=== PATIENT | female | born 1975 | race Caucasian/White ===

== ENCOUNTER → 2018-12-10 08:17 | Outpatient (CLI) | payer BC, SELFPAY ==
--- NOTE | 2018-12-10 08:19 | MM_ITS ---
MM Dig screening mamm BI w/CAD CAD Screening COMPARISON: None, this is baseline INDICATION: There is no personal or family history of breast cancer TECHNIQUE: Standard CC and MLO images were obtained. R2 CAD reviewed. FINDINGS: Scattered fibroglandular densities are seen in both breast. There is a possible asymmetric density left breast best seen on the cc view but likely present on the MLO view as well. This likely is asymmetric glandular tissue but recommend patient return for spot compression views in MLO and CC projection. Ultrasound may be necessary as well. There are no suspicious microcalcifications. IMPRESSION: Fibrofatty parenchyma with possible asymmetric density versus summation shadow left breast BI-RADS Category: 0 Need Additional Imaging Evaluation RECOMMENDED FOLLOW-UP: IMM - IMMEDIATE FOLLOW-UP RECOMMENDED (A letter has been sent to the patient regarding results of the study.)
== END ==
PROVIDERS: PCP Internal Medicine; Visit Provider Nurse Practitioner Obstetrics & Gynecology
DX: Z12.31 Encounter for screening mammogram for malignant neoplasm of breast (principal)
CPT/HCPCS: 77067

== ENCOUNTER → 2019-04-01 13:50 | Outpatient (CLI) | payer BC, SELFPAY ==
--- NOTE | 2019-04-01 13:52 | MM_ITS ---
PROCEDURE: MM DIG MAMM DX UNILAT LT CAD CLINICAL INDICATION: Dx Mammogram Left Breast-Abnormal Mammogram COMPARISON: DIG MAMM-SCREEN SANJEEV from 12/10/2018 US BREAST LT COMPLETE from 04/01/2019 TECHNIQUE: Spot-compression views as well as left breast ultrasound. FINDINGS: Spot-compression views are performed of the left breast. There is some persistent increased density in the superior left breast posteriorly on the spot compression views with some questionable architectural distortion. This however is not duplicated on the CC view nor the mL view there is a well-circumscribed 8 mm nodule at 3 o'clock position of the left breast which corresponds to a complicated cyst by ultrasound. Left breast ultrasound: There is a 9 by 8 mm hypoechoic nodule at 3 o'clock with good through transmission of sound. The nodules well-circumscribed. There are some internal septations within the nodule. This is consistent with a complicated cyst IMPRESSION: Asymmetry in the upper aspect of the left breast is not confirmed on the mL view or orthogonal view or ultrasound and may be due to fibroglandular tissue. Complicated cyst is present at 3 o'clock. Probably benign findings. Recommend six-month mammographic and sonographic follow-up as well as correlation with physical exam BI-RAD Category: 3 Probably Benign Finding Short Term Follow-up FOLLOW-UP: 6M 6Month Follow-up (A letter has been sent to the patient regarding results of the study.) Dictated by: Pedro Luis Bianchi MD 04/08/2019 11:11 Electronically signed by Pedro Luis Bianchi MD in [place] 04/08/2019 11:11
== END ==
PROVIDERS: PCP Internal Medicine; Visit Provider Nurse Practitioner Obstetrics & Gynecology
DX: R92.8 Other abnormal and inconclusive findings on diagnostic imaging of breast (principal)
CPT/HCPCS: 76641; 77065

== ENCOUNTER → 2019-05-31 14:56 | Outpatient (POV) | payer BC, SELFPAY | PROVIDERS: Visit Provider Dermatology | DX: Z00.00 Encounter for general adult medical examination without abnormal findings (principal) ==

== ENCOUNTER → 2021-01-14 10:58 | Outpatient (CLI) | payer BC, SELFPAY ==
--- NOTE | 2021-01-15 12:36 | PC.NURSE ---
Notified pt of her results and daughters results
== END ==
PROVIDERS: PCP Internal Medicine; Referring Provider Internal Medicine; Visit Provider Internal Medicine
DX: Z20.822 Contact with and (suspected) exposure to COVID-19 (principal); U07.1 COVID-19
CPT/HCPCS: U0003

== ENCOUNTER → 2021-10-16 16:04 | Outpatient (CLI) | payer BC, SELFPAY | PROVIDERS: PCP Internal Medicine; Visit Provider Internal Medicine | DX: Z20.822 Contact with and (suspected) exposure to COVID-19 (principal) | CPT/HCPCS: C9803; U0003; U0005 ==

== ENCOUNTER → 2022-02-07 11:20 | Outpatient (CLI) | payer BC, SELFPAY ==
[2022-02-07 13:07] LABS: Basophils # 0.1 K/mm3 (0-0.2); Basophils % 1.2 % (0.1-2.0); Eosinophils # 0.3 K/mm3 (0.0-0.4); Hematocrit 29.4 % (37.0-47.0); Hemoglobin 8.7 g/dL (12.2-16.2); Lymphocytes # 1.4 K/mm3 (0.7-4.5); Lymphocytes % 21.6 % (10-50); Mean Corpuscular HGB Conc 29.6 g/dL (31.8-35.4); Mean Corpuscular Hemoglobin 20.8 pg (27.0-31.2); Mean Corpuscular Volume 70.2 fl (81-99); Mean Platelet Volume 7.8 fl (7.4-10.4); Monocytes # 0.4 K/mm3 (0.1-1.0); Monocytes % 6.4 % (1.7-9.3); Neutrophils # 4.2 K/mm3 (1.8-7.8); Neutrophils % 66.7 % (37.0-80.0); Platelet Count 336 K/mm3 (142-424); Red Blood Count 4.19 M/mm3 (4.20-5.40); Red Cell Distribution Width 17.7 % (11.5-17.5); White Blood Count 6.3 K/mm3 (4.8-10.8)
[2022-02-07 13:33] LABS: Alanine Aminotransferase 15 U/L (12-78); Albumin Level 4.1 g/dl (3.5-5.0); Albumin/Globulin Ratio 1.7 (1.1-1.8); Alkaline Phosphatase 75 U/L (38-126); Anion Gap 13.4 mEq/L (5-15); Aspartate Amino Transferase 22 U/L (14-36); Blood Urea Nitrogen 10 mg/dl (7-17); Calcium 8.8 mg/dl (8.4-10.2); Carbon Dioxide 26 mmol/L (22.0-30.0); Chloride 104 mmol/L (98-107); Chol/HDL Ratio 4.1 (1-3.5); Cholesterol 173 mg/dl (140-200); Estimated Glomerular Filt Rate 90 ml/min (>60); GFR (African American) 109 ML/MIN (>60); Globulin 2.4 g/dL (1.3-3.2); Glucose 84 mg/dl (74-100); HDL Cholesterol 42 mg/dl (40-60); Potassium 4.4 mmoL/L (3.5-5.1); Sodium 139 mmol/L (136-145); Total Protein,Serum 6.5 g/dl (6.3-8.2); Triglycerides 98 mg/dl (30-150); VLDL Cholesterol 20 mg/dL (0-40)
[2022-02-07 13:39] LABS: Bilirubin,Total 0.1 mg/dl (0.2-1.3)
[2022-02-07 13:44] LABS: Direct LDL Cholesterol 112.89 mg/dL (100-129)
[2022-02-07 14:04] LABS: Thyroid Stimulating Hormone 2.52 uIU/mL (0.465-4.68)
[2022-02-07 14:46] LABS: Iron 24 ug/dL (37-170)
[2022-02-07 14:56] LABS: Total Iron Binding Capacity 446 ug/dL (265-497)
[2022-02-11 09:40] LABS: Ferritin 3.58 ng/ml (6.24-137)
== END ==
PROVIDERS: PCP Internal Medicine; Visit Provider Internal Medicine
DX: E78.5 Hyperlipidemia, unspecified (principal); R31.29 Other microscopic hematuria; N92.0 Excessive and frequent menstruation with regular cycle
CPT/HCPCS: 36415; 80053; 80061; 82728; 83540; 83550; 84443; 85025

== ENCOUNTER → 2022-03-14 20:57 | Outpatient (CLI) | payer BC, SELFPAY ==
[2022-03-14 21:24] LABS: Basophils # 0.1 K/mm3 (0-0.2); Basophils % 1.5 % (0.1-2.0); Eosinophils # 0.3 K/mm3 (0.0-0.4); Eosinophils % 4.2 % (0.1-12.0); Hemoglobin 11.7 g/dL (12.2-16.2); Lymphocytes # 1.6 K/mm3 (0.7-4.5); Lymphocytes % 26.8 % (10-50); Mean Corpuscular HGB Conc 30.7 g/dL (31.8-35.4); Mean Corpuscular Hemoglobin 26.8 pg (27.0-31.2); Mean Corpuscular Volume 87.2 fl (81-99); Mean Platelet Volume 9.1 fl (7.4-10.4); Monocytes # 0.3 K/mm3 (0.1-1.0); Monocytes % 4.6 % (1.7-9.3); Neutrophils # 3.8 K/mm3 (1.8-7.8); Neutrophils % 63.1 % (37.0-80.0); Platelet Count 319 K/mm3 (142-424); Red Blood Count 4.36 M/mm3 (4.20-5.40); Reticulocyte % (Auto) 2.1 % (0.9-3.2); White Blood Count 6.1 K/mm3 (4.8-10.8)
[2022-03-14 21:52] LABS: Red Cell Distribution Width 25.7 % (11.5-17.5)
== END ==
PROVIDERS: PCP Internal Medicine; Visit Provider Internal Medicine
DX: D50.0 Iron deficiency anemia secondary to blood loss (chronic) (principal)
CPT/HCPCS: 85025; 85044

== ENCOUNTER → 2022-06-13 16:43 | Outpatient (CLI) | payer BC, SELFPAY ==
[2022-06-13 17:27] LABS: Basophils # 0.1 K/mm3 (0-0.2); Basophils % 1.8 % (0.1-2.0); Eosinophils # 0.3 K/mm3 (0.0-0.4); Eosinophils % 3.9 % (0.1-12.0); Hematocrit 43.4 % (37.0-47.0); Hemoglobin 13.9 g/dL (12.2-16.2); Lymphocytes # 1.5 K/mm3 (0.7-4.5); Mean Corpuscular HGB Conc 32.1 g/dL (31.8-35.4); Mean Corpuscular Hemoglobin 29.1 pg (27.0-31.2); Mean Corpuscular Volume 90.8 fl (81-99); Mean Platelet Volume 8.8 fl (7.4-10.4); Monocytes # 0.4 K/mm3 (0.1-1.0); Monocytes % 5.6 % (1.7-9.3); Neutrophils # 4.8 K/mm3 (1.8-7.8); Neutrophils % 67.7 % (37.0-80.0); Platelet Count 307 K/mm3 (142-424); Red Blood Count 4.79 M/mm3 (4.20-5.40); Red Cell Distribution Width 13.8 % (11.5-17.5); White Blood Count 7.2 K/mm3 (4.8-10.8)
[2022-06-13 18:35] LABS: Thyroid Stimulating Hormone 2.21 uIU/mL (0.465-4.68)
[2022-06-13 18:54] LABS: Vitamin B12 818 pg/mL (239-931)
== END ==
PROVIDERS: PCP Internal Medicine; Visit Provider Internal Medicine
DX: D50.0 Iron deficiency anemia secondary to blood loss (chronic) (principal); D64.9 Anemia, unspecified
CPT/HCPCS: 82607; 84443; 85025

== ENCOUNTER 2024-12-21 10:42 | Outpatient (CLI) | payer BC, SELFPAY ==
--- NOTE | 2024-12-21 11:00 | MM_ITS ---
PROCEDURE INFORMATION: Exam: MG Bilateral Screening 3D Mammography Exam date and time: 12/21/2024 10:48 AM Age: 49 years old Clinical indication: Screening. No family history of breast cancer. Had been recommended for six-month follow-up of mammographic mass corresponding to a complicated cyst in the left breast at 3 o'clock March 2019. TECHNIQUE: Imaging protocol: Bilateral Screening tomosynthesis and 2D mammography including computer-aided detection (CAD) when performed. COMPARISON: 1. MG MM DIG MAMM DX UNILAT LT CAD 04/01/2019 2:12 PM 2. MG DIG MAMM-SCREEN SANJEEV 12/10/2018 8:48 AM 3. US BREAST LT COMPLETE 04/01/2019 2:25 PM FINDINGS: MAMMOGRAPHY: Breast composition: There are scattered areas of fibroglandular density. Mass: Stable 0.8 cm oval mass in the left breast at 3 o'clock. Architectural distortion: None. Calcifications: No suspicious calcifications. Asymmetric density: None. Skin thickening: None. Axillary adenopathy: None. IMPRESSION: No mammographic evidence of malignancy. Annual screening is recommended unless otherwise clinically indicated. ASSESSMENT: BI-RADS Category 2: Benign.
== END 2024-12-21 23:59 | disposition home or self-care (01) ==
LOC: RAD 10:42
PROVIDERS: PCP Internal Medicine; Visit Provider Nurse Practitioner Obstetrics & Gynecology
DX: Z12.31 Encounter for screening mammogram for malignant neoplasm of breast (principal); N63.25 Unspecified lump in the left breast, overlapping quadrants; R92.323 Mammographic fibroglandular density, bilateral breasts
CPT/HCPCS: 77063; 77067